=== PATIENT | female | born 1995 | race Caucasian/White ===

== ENCOUNTER → 2021-04-14 10:18 | Outpatient (CLI) | payer OTHER, SELFPAY ==
[2021-04-14 11:15] LABS: Add Manual Diff / Slide Review NO; Basophils Absolute Auto 100 /uL (0-100); Basophils Percent Auto 0.8 % (0-2); Eosinophils Absolute Auto 100 /uL (0-450); Eosinophils Percent Auto 0.9 % (2-4); Hematocrit 37.3 % (36-46); Hemoglobin 12.3 g/dL (12.0-16.0); Lymphocytes Absolute Auto 2200 /uL (1100-4500); Lymphocytes Percent Auto 28.6 % (25-40); Mean Corpuscular Hemoglobin 29.8 PG (26-34); Mean Corpuscular Volume 90.2 fL (80-100); Monocytes Absolute Auto 500 /uL (0-900); Monocytes Percent Auto 6.8 % (3-14); Neutrophils Absolute Auto 4900 /uL (1500-7000); Neutrophils Percent Auto 62.9 % (50-75); Platelet Count 304 X10^3/uL (150-400); Red Blood Cell Count 4.14 X10^6/uL (4.0-5.2); Red Cell Distribution Width 12.6 % (11.6-14.8); White Blood Cell Count 7.8 X10^3/uL (4.5-11.0)
[2021-04-14 11:53] LABS: Appearance Urine UA CLEAR; Bilirubin Urine UA NEGATIVE (NEGATIVE); Color Urine UA YELLOW; Glucose Urine UA NEGATIVE (Negative); Ketones Urine UA NEGATIVE (NEGATIVE); Leukocyte Esterase Urine UA NEGATIVE (NEGATIVE); Nitrite Urine UA NEGATIVE (Negative); Occult Blood Urine UA NEGATIVE (Negative); Protein Urine UA NEGATIVE (Negative); Urobilinogen Urine UA 0.2 E.U./dL (0.2)
[2021-04-14 11:54] LABS: pH Urine UA 7.5 (4.5-8.0)
[2021-04-14 15:34] LABS: Hepatitis B Surface Antigen NEGATIVE s/c (NEGATIVE); Rubella Antibody IgG 60.4 IU/mL (>15)
[2021-04-14 15:38] LABS: HIV 1 & 2 Ab/Ag 4th Gen Combo NEGATIVE (NEGATIVE); Hep C Virus Ab w/Reflex Quant NEGATIVE s/c (NEGATIVE)
[2021-04-15 07:10] LABS: RPR Screen Non Reactive (Non Reactive)
[2021-04-15 13:44] LABS: Varicella IgG Antibody >4000 index (Immune >165)
== END ==
PROVIDERS: Referring Provider Family Medicine; Visit Provider Family Medicine
DX: Z34.01 Encounter for supervision of normal first pregnancy, first trimester (principal)
CPT/HCPCS: 36415; 80055; 81003; 86787; 86803; 86850; 86900; 86901; 87086; 87389

== ENCOUNTER → 2021-04-29 12:36 | Outpatient (CLI) | payer OTHER, SELFPAY | PROVIDERS: Referring Provider Family Medicine; Visit Provider Family Medicine | DX: Z34.81 Encounter for supervision of other normal pregnancy, first trimester (principal) | CPT/HCPCS: 36415 ==

== ENCOUNTER → 2021-07-16 10:08 | Outpatient (CLI) | payer OTHER, SELFPAY ==
--- NOTE | 2021-07-16 10:10 | DI.US.S_ITS ---
PROCEDURE: US OB >= 14 WEEKS FETUS INDICATIONS: ANATOMY OUTSIDE/PRIOR DATING DATA: First dating scan (date and location): July 16, 2021 . Estimated date of delivery (SHIMA) from first dating scan: November 25, 2021 . TECHNIQUE: Real-time scanning was performed of the fetus, with image documentation and biometric measurements. Endovaginal scanning: Not performed COMPARISON: None. FINDINGS: General: A single living intrauterine gestation is present. Presentation: Vertex. Placenta: Placental position is posterior , without previa. Amniotic fluid index: 11.5 cm, normal range is 5-24 cm. heart rate: 144 beats per minute. Maternal cervical canal: 3.4 cm long. Normal lower limit is 2.5 cm. Echogenic debris noted diffusely throughout the maternal urinary bladder. biometrics: Biparietal diameter: 5.4 cm, correlating with 22 weeks and 2 days Head circumference: 19.0 cm, correlating with 21 weeks and 2 days Abdominal circumference: 14.7 cm, correlating with 20 weeks and 0 days Femur length: 3.4 cm, correlating with 20 weeks and 5 days Estimated gestational age from initial scan: not applicable. Composite gestational age from present scan: 21 weeks and 1 day Estimated weight and percentile: 356 g. Percentile not able to be calculated. Measurement variability for biometric dating: +/- 7 days from 14 weeks to 15 weeks 6 days gestation, +/- 10 days from 16 weeks to 21 weeks 6 days gestation, +/- 2 weeks from 22 weeks to 27 weeks 6 days gestation, +/- 3 weeks for 28 weeks gestation or later. weight reference: 4500 g or EFW >90/95% is considered macrosomia or large for gestational age. EFW <10% is small for gestational age. EFW 5% or less is considered intra-uterine growth restriction. Anatomic survey: Neuro: Ventricles are non-dilated at less than 10 mm. Cisterna magna is normal at 3-11 mm. Cerebellum is normal in size and morphology. Nuchal skin fold: Normal at less than 6 mm between 14-21 weeks gestational age. Face: Nose and lips, facial profile are normal. Spine: No evidence for spina bifida. Heart: 4-chambered heart is present, with normal ventricular outflow tracts. Diaphragm: Diaphragm is intact. Stomach: Left-sided stomach is present. Kidneys: No hydronephrosis. Normal is less than 5 mm in 2nd trimester, less than 7 mm in 3rd trimester. Cord: 3-vessel cord has orthotopic insertion. Bladder: Normal in size. Extremities: All 4 extremities identified. IMPRESSION: 1. Single living intrauterine gestation with estimated sonographic gestational age of approximately 21 weeks and 1 day with estimated dated delivery of approximately November 25, 2021. Estimated weight of approximately 356 g. weight percentile not able to be calculated. 2. Normal second-trimester anatomic screening survey. 3. Incidental note of diffuse echogenic debris within the maternal urinary bladder. Recommend clinical correlation. Dictated by: Kraig Manzanares M.D. on 07/16/2021 at 15:05 Approved by: Kraig Manzanares M.D. on 07/16/2021 at 15:10
== END ==
PROVIDERS: PCP Family Medicine; Referring Provider Family Medicine; Visit Provider Family Medicine
DX: Z34.90 Encounter for supervision of normal pregnancy, unspecified, unspecified trimester (principal); Z3A.20 20 weeks gestation of pregnancy
CPT/HCPCS: 76811

== ENCOUNTER → 2021-09-10 10:02 | Outpatient (CLI) | payer OTHER, SELFPAY ==
[2021-09-10 11:46] LABS: Add Manual Diff / Slide Review NO; Basophils Absolute Auto 0 /uL (0-100); Basophils Percent Auto 0.3 % (0-2); Eosinophils Absolute Auto 100 /uL (0-450); Eosinophils Percent Auto 0.6 % (2-4); Hematocrit 34.4 % (36-46); Hemoglobin 11.7 g/dL (12.0-16.0); Lymphocytes Absolute Auto 1700 /uL (1100-4500); Lymphocytes Percent Auto 17.7 % (25-40); Mean Corpuscular HGB Conc 34.1 % (30-36); Mean Corpuscular Hemoglobin 30.4 PG (26-34); Monocytes Absolute Auto 600 /uL (0-900); Monocytes Percent Auto 5.9 % (3-14); Neutrophils Absolute Auto 7300 /uL (1500-7000); Neutrophils Percent Auto 75.5 % (50-75); Platelet Count 250 X10^3/uL (150-400); Red Blood Cell Count 3.86 X10^6/uL (4.0-5.2); Red Cell Distribution Width 12.9 % (11.6-14.8); White Blood Cell Count 9.6 X10^3/uL (4.5-11.0)
[2021-09-10 13:03] LABS: GTT (PREG) 1 Hour PP 50gm Dose 118 mg/dL (76-139)
== END ==
PROVIDERS: PCP Family Medicine; Referring Provider Family Medicine; Visit Provider Family Medicine
DX: Z3A.24 24 weeks gestation of pregnancy (principal)
CPT/HCPCS: 36415; 82950; 85025

== ENCOUNTER → 2021-10-22 10:04 | Outpatient (CLI) | payer OTHER, SELFPAY ==
[2021-10-22 11:04] LABS: COVID19 -Nasal RAPID POSITIVE (Negative)
== END ==
PROVIDERS: PCP Family Medicine; Visit Provider Family Medicine
DX: J02.9 Acute pharyngitis, unspecified (principal); M79.10 Myalgia, unspecified site
CPT/HCPCS: 87635

== ENCOUNTER → 2021-11-05 10:13 | Outpatient (CLI) | payer OTHER, SELFPAY ==
[2021-11-07 10:34] LABS: Strep Grp B PCR NEG for Grp B Strep
== END ==
PROVIDERS: PCP Family Medicine; Visit Provider Family Medicine
DX: Z34.93 Encounter for supervision of normal pregnancy, unspecified, third trimester (principal); Z3A.35 35 weeks gestation of pregnancy
CPT/HCPCS: 87653

== ENCOUNTER → 2021-11-10 09:59 | Outpatient (CLI) | payer OTHER, SELFPAY ==
--- NOTE | 2021-11-10 10:01 | DI.US.S_ITS ---
PROCEDURE: US OB FOLLOW UP INDICATIONS: LGA OUTSIDE/PRIOR DATING DATA: Last menstrual period (LMP): Unknown. LMP-based estimated date of delivery (SHIMA): Not applicable First dating scan (date and location): 07/16/21. Estimated date of delivery (SHIMA) from first dating scan: 11/25/21. The calculations are made using the ultrasound SHIMA of 11/25/21. TECHNIQUE: Real-time scanning was performed of the fetus, with image documentation and biometric measurements. Endovaginal scanning: Not performed COMPARISON: [facility], , US OB >= 14 WEEKS FETUS, 07/16/2021, 10:59. FINDINGS: General: A single living intrauterine gestation is present. Presentation: Vertex. Placenta: Placental position is posterior to the maternal left , without previa. Amniotic fluid index: 21.5 cm, normal range is 5-24 cm. Single deepest vertical pocket is 8.2 cm. heart rate: 153 beats per minute. Maternal cervical canal: Not measured biometrics: Biparietal diameter: 9.3 cm, 37 weeks, four days Head circumference: 34.7 cm, 40 weeks, two days Abdominal circumference: 33.8 cm, 37 weeks, five days Femur length: 7.2 cm, 36 weeks, four days Clinically estimated gestational age: 37 weeks, six days Composite gestational age from present scan: 38 weeks, 0 days Estimated weight and percentile: 3294 g, 58th percentile IMPRESSION: 1. Single living intrauterine with appropriate growth. 2. Amniotic fluid index 21.5 cm. 3. Estimated weight at the 58th percentile. We strive to produce accurate, complete, and clear reports of imaging services. To assist us in improving patient care, this report was composed using standard report templates and voice recognition software. Therefore, it may contain abnormal punctuation, insertions and/or omissions. Occasional wrong-word or sound-alike substitutions may occur. Though we review the report and make efforts to correct it, we do recommend that the report be read carefully in proper context to recognize any text inaccuracies. Dictated by: Joann Bae M.D. on 11/10/2021 at 14:13 Approved by: Joann Bae M.D. on 11/10/2021 at 14:18
== END ==
PROVIDERS: PCP Family Medicine; Referring Provider Family Medicine; Visit Provider Family Medicine
DX: Z34.93 Encounter for supervision of normal pregnancy, unspecified, third trimester (principal); Z3A.38 38 weeks gestation of pregnancy
CPT/HCPCS: 76816

== ENCOUNTER 2021-11-22 08:47 | Inpatient (IN) | payer OTHER, SELFPAY ==
--- NOTE | 2021-11-22 10:50 | P.HPOB_ITS ---
OB HPI Date/Time Date of admission: 11/22/21 Date Patient Seen: 11/22/21 Time Patient Seen: 10:30 History of Present Condition Chief complaint: LABOR SHIMA Calculator Estimated Delivery Date Method Current WG Current Estimate 11/30/21 Manual 38w 6d Final SHIMA - KASSY Other Estimates 11/23/21 LMP (Certain) 39w 6d 11/30/21 Ultrasound #1 38w 6d Estimated Gestational Age (weeks): 38w6d : 1 Para: 0 Narrative: Pt is a 26yo at 38w6d who presented with regular painful contractions. Pt reports contractions started around 2am and have increased in frequency and intensity since then. No LOF, mild pink spotting. She is feeling her baby move regularly. The pts has been uncomplicated. care: good care, initiated at week # (7) and pounds weight gain (48) Dating criteria OB: based on 1st trimester US only Ultrasounds: normal 1st trimester US and normal mid trimester US Obstetrical complications: none Medical complications OB: none Preadmission Labs Last OB Lab Results: Blood Type A Positive 04/14/21 10:41 04/14/21 Antibody Screen Negative 04/14/21 10:41 04/14/21 Hematocrit 34.4 % (36-46) L 09/10/21 11:25 09/10/21 Hemoglobin 11.7 g/dL (12.0-16.0) L 09/10/21 11:25 09/10/21 Hepatitis B Surface Antigen Negative s/c (NEGATIVE) 04/14/21 10:41 04/14/21 Hepatitis C Antibody Negative s/c (NEGATIVE) 04/14/21 10:41 04/14/21 Rubella Antibody 60.4 IU/mL (>15) 04/14/21 10:41 04/14/21 Varicella-Zoster IgG Antibody >4000 index (Immune >165) 04/14/21 10:41 04/14/21 Glucose 1 Hour 118 mg/dL (76-139) 09/10/21 11:25 09/10/21 Group B Streptococcus (PCR) Neg for grp b strep 11/05/21 10:13 11/05/21 -: Urine: negative Genetic Screens: Cell-free DNA: Normal External Labs -: Urine: negative Evaluation Evaluation Baseline heart rate: 150 Variability: Moderate (11-25) monitor accelerations: Present Monitor Decelerations: Absent Contraction Frequency (minutes): 4 Status: Category l Dilation (cm): 5 Effacement (%): 75 station: -3 [facility] Medical History (Updated 04/04/21 @ 10:22 by Ngozi Tavares RN) Encounter for IUD removal (~12/2020) Surgical History (Updated 04/04/21 @ 10:21 by Ngozi Tavares RN) [place] teeth extracted (~2012) Family History (Updated 04/04/21 @ 10:28 by Ngozi Tavares RN) Mother Insomnia Depression Father Melanoma Grandmother No problems noted. Grandfather Unknown family medical history Grandmother Previous back surgery Arthritis Grandfather No problems noted. Brother Schizophrenia Autism Sister Anxiety Social History marital status: unmarried,living together number of children: 3 household members: significant other (Fiance': engaged to be 04/2021. Has 10 year old son by previous partner. ) and family lives independently: Yes caregiver/support person: No housing: house pets and animals: Yes (1 dog: Safe/aware. ) education level: college ([employer] occupational status: employed ([employer] ) current occupational exposures/hazards: No noy/yazdanism: Christianity special noy needs: No seatbelt use: always firearms in home: No do you feel safe at home: Yes Smoking Status: Never smoker second hand exposure: No alcohol intake: former (Pre-: weekends/social. None since 4 weeks. ) substance use type: does not use during the past year weight has: remained stable well-balanced diet: daily or most days daily servings fruits/ve-4 caffeine: Yes (Has cut down to 1/2 cup/day from 3 cups/day.) Type(s) of exercise: walking (20 min daily. ), running (Used to run 4 miles 3 x a week, but stopped with .) and normal ROM and activity frequency: daily Meds Home Medications and Allergies Home Medications Medication Instructions Recorded Confirmed Type prenat.vits,mary lou,[id number] 1 tab PO DAILY 04/04/21 11/22/21 History acyclovir 400 mg tablet 400 mg PO BID #60 tab 07/31/21 11/22/21 Rx Allergies Allergy/AdvReac Type Severity Reaction Status Date / Time amoxicillin Allergy Severe Hives Verified 04/04/21 10:11 Penicillins Allergy Severe Hives Verified 04/04/21 10:11 OB Exam Narrative Exam Narrative: Gen: NAD, sitting comfortably in bed, appears well CV: RRR, no murmurs Resp: clear to auscultation bilaterally Abd: soft, gravid, nontender Ext: trace edema Assessment and Plan Assessment and Plan Assessment and Plan narrative: 26yo at 38w6d here in active labor. GBS negative, Rh positive. No complications with . - Expectant management, anticipate - FHT reassuring - GBS negative, no prophylaxis - Epidural for pain control when desired
[2021-11-22 11:18] VITALS: BP 132/80
[2021-11-22 12:11] LABS: COVID19 -Nasal RAPID Negative (Negative)
[2021-11-22 15:24] LABS: Add Manual Diff / Slide Review NO; Basophils Absolute Auto 100 /uL (0-100); Basophils Percent Auto 0.7 % (0-2); Eosinophils Absolute Auto 0 /uL (0-450); Eosinophils Percent Auto 0.1 % (2-4); Hematocrit 39.2 % (36-46); Hemoglobin 13.2 g/dL (12.0-16.0); Lymphocytes Absolute Auto 1800 /uL (1100-4500); Mean Corpuscular HGB Conc 33.7 % (30-36); Mean Corpuscular Hemoglobin 29.9 PG (26-34); Mean Corpuscular Volume 88.7 fL (80-100); Monocytes Absolute Auto 600 /uL (0-900); Monocytes Percent Auto 4.2 % (3-14); Neutrophils Absolute Auto 12500 /uL (1500-7000); Platelet Count 257 X10^3/uL (150-400); Red Blood Cell Count 4.43 X10^6/uL (4.0-5.2); Red Cell Distribution Width 13.3 % (11.6-14.8); White Blood Cell Count 15.1 X10^3/uL (4.5-11.0)
--- NOTE | 2021-11-22 16:19 | PM.OBPNLAB ---
Date/Time Date Patient Seen: 11/22/21 Time Patient Seen: 16:19 Pain Control Pain control: epidural Pelvic Exam Dilation (cm): 6.5 Effacement (%): 90 station: 0 Comments: After informed consent, AROM performed with production of clear fluid Contractions Contraction frequency (min): 3 Contraction pattern: Regular Status status: Category l Heart Rate Baseline: 140 Monitor Accelerations: Present Monitor Decelerations: Absent Monitor Variability: Moderate Assessment and Plan Comments: 26yo at 38w6d here in active labor.? GBS negative, Rh positive.? No complications with . AROM performed with production of clear fluid due to limited cervical change. - Expectant management, anticipate - FHT reassuring - GBS negative, no prophylaxis - Epidural in place for pain control
--- NOTE | 2021-11-22 22:16 | PM.OBPRVD ---
Labor & Delivery Delivery date: 11/22/21 Intrapartal Events: None Cervical ripening method: none Induction method: none Delivery augmentation: rupture of membranes Delivery monitor: external FHT Route of delivery: Episiotomy description: None L&D Laceration Description: Periurethral - 1st Degree and Vaginal - 1st Degree Estimated blood loss (mL): 400 Anesthesia Type: Epidural Complications: None Narrative: PROCEDURE: at 38w6d presented in active labor and was admitted to Labor and Delivery. The patient progressed through the 1st stage over 17 hours. Pain was controlled with an epidural. AROM was performed with production of clear fluid. The patient progressed through the 2nd stage over 1 hours and delivered a viable male infant with APGARs 9/9 at 21:45 via without complications. The pts tracing remained Category I throughout. The cord was clamped and cut after it stopped pulsating. The perineum and vagina were inspected with vaginal laceration repaired with 2-O Chromic, and right periurethral laceration repaired with 3-O Chromic. PREPROCEDURE DIAGNOSIS: Intrauterine at 38w6d GBS negative RH positive POSTPROCEDURE DIAGNOSIS: Intrauterine at 38w6d, delivered Same as preprocedure Baby 1: gender: Male Presentation: vertex Position: Left Occiput Anterior Placenta delivery description: Spontaneous Cord Vessel Description: 3 Vessels and Around Body x2 score (1 min): 9 score (5 min): 9 weight: 8 lb 1.597 oz Plan for aftercare: Routine care
[2021-11-22] MEDS: IBUPROFEN 600 MG TABLET PO (22:51)
[2021-11-22] MEDS: ACETAMINOPHEN 325 MG TABLET 650 MG PO (22:51)
[2021-11-23] MEDS: ACETAMINOPHEN 325 MG TABLET 650 MG PO ×2 (04:49→10:31)
[2021-11-23] MEDS: IBUPROFEN 600 MG TABLET PO ×2 (04:49→10:31)
[2021-11-23 07:04] LABS: Add Manual Diff / Slide Review NO; Basophils Absolute Auto 100 /uL (0-100); Basophils Percent Auto 0.4 % (0-2); Eosinophils Absolute Auto 100 /uL (0-450); Eosinophils Percent Auto 0.5 % (2-4); Hemoglobin 11.4 g/dL (12.0-16.0); Lymphocytes Absolute Auto 2500 /uL (1100-4500); Lymphocytes Percent Auto 15.3 % (25-40); Mean Corpuscular HGB Conc 33.6 % (30-36); Mean Corpuscular Hemoglobin 29.8 PG (26-34); Mean Corpuscular Volume 88.7 fL (80-100); Monocytes Absolute Auto 1000 /uL (0-900); Monocytes Percent Auto 6.1 % (3-14); Neutrophils Absolute Auto 12700 /uL (1500-7000); Neutrophils Percent Auto 77.7 % (50-75); Platelet Count 204 X10^3/uL (150-400); Red Blood Cell Count 3.84 X10^6/uL (4.0-5.2); White Blood Cell Count 16.4 X10^3/uL (4.5-11.0)
[2021-11-23] MEDS: DERMOPLAST SPRAY 20% 60 ML 1 SPRAY TOP (10:30)
[2021-11-23] MEDS: LANOLIN OINT 7 GM 1 APPLIC TOP (10:30)
[2021-11-23] MEDS: PRENATAL VIT,CALC/IRON/FOLIC 1 TABLET 1 TAB PO (10:31)
[2021-11-23] MEDS: DOCUSATE 100 MG CAPSULE PO (10:31)
--- NOTE | 2021-11-23 14:47 | P.DS_ITS ---
Discharge Providers Provider Date of admission: 11/22/21 08:47 Discharge Date: 11/23/21 Primary care physician: Liss Oscar MD Consults: 11/23/21 22:17 Consult to External Relations Director Routine Comment: Discharge provider: Liss Oscar MD Summary Hospital Course Date Patient Seen: 11/23/21 Time Patient Seen: 11:00 Diagnoses: 38w6d gestation GBS negative Rh positive Hospital Course: The pt presented in active labor. She receive d an epidural for pain control. AROM was performed with clear fluid present. She progressed to complete and had a of a viable baby boy on 11/22/21 without complications. Vaginal and right periurethral lacerations were then repaired. , there were no complications. At the time of discharge she was voiding, ambulating, and passing flatus without difficulty. Her lochia was decreasing appropriately. Her pain was well controlled. She was with good latch. She will f/u in clinic for 6 week check. She desires Mirena IUD for contraception. Peripartum Data Infant Delivery Method: Natural Vaginal Laceration Description: Periurethral - 1st Degree and Vaginal - 1st Degree Episiotomy description: None Procedures: complications: none Cort[place] 1: Gender: Male Disposition of : home Discharge Diagnosis (1) Spontaneous vaginal delivery: Status: Acute Status at Discharge Cognitive/behavioral status at discharge: oriented Functional status at discharge: independent ambulation Overall status at discharge: patient is progressing back to baseline Time Spent with Patient Time attestation: Total time spent providing and/or coordinating discharge services: Objective Labs Result Diagrams: 11/23/21 06:55 Labs: Laboratory Results - last 24 hr 11/22/21 11/22/21 11/23/21 15:10 15:10 06:55 WBC 15.1 H 16.4 H RBC 4.43 3.84 L Hgb 13.2 11.4 L Hct 39.2 34.0 L MCV 88.7 88.7 MCH 29.9 29.8 MCHC 33.7 33.6 RDW 13.3 13.0 Plt Count 257 204 Neut % (Auto) 83.0 H 77.7 H Lymph % (Auto) 12.0 L 15.3 L Sevier % (Auto) 4.2 6.1 Eos % (Auto) 0.1 L 0.5 L Baso % (Auto) 0.7 0.4 Neut # (Auto) 67934 H 28272 H Lymph # (Auto) 1800 2500 [place]vier # (Auto) 600 1000 H Eos # (Auto) 0 100 Baso # (Auto) 100 100 Blood Type A Positive Antibody Screen Negative Exam Narrative Exam Narrative: Gen: NAD, sitting comfortably in bed, appears well CV: RRR, no murmurs Resp: clear to auscultation bilaterally Abd: soft, appropriately tender, fundus firm and below the umbilicus, nondiste nded Ext: no edema Discharge Plan Discharge orders & Medications Discharge Orders: Discharge (Order); Ordered 11/23/21 Ordered By: Liss Oscar Prescriptions: New acetaminophen 325 mg Tablet 650 mg PO Q6HR PRN (Reason: Pain, Mild (1-3)) Qty: 30 0RF docusate sodium 100 mg Capsule 100 mg PO DAILY Qty: 30 0RF ibuprofen 600 mg Tablet 600 mg PO Q6HR PRN (Reason: Pain, Mild (1-3)) Qty: 30 0RF Continued acyclovir 400 mg tablet 400 mg PO BID Qty: 60 0RF prenat.vits,mary lou,[id number] Tablet 1 tab PO DAILY 0RF Follow up/Referrals: Liss Oscar MD [Primary Care Provider] - 6 Weeks Diet/Activity/Treatments Diet: Diet as Tolerated and Regular Skin/Wound/Dressing Care Report to your healthcare provider any signs of infection, such as:: chills, fever, increased pain and unusual drainage Visit Report/Discharge Packet Instructions: DI for Labor and Delivery, Vaginal Visit Report Forms: Patient Portal/API, Stroke Signs & Symptoms Discharge Data Primary Care Provider: Liss Oscar
[2021-11-23 18:27] VITALS: BP 132/80; PULSE 80; RESP 18; TEMP 36.3
== END 2021-11-23 19:00 | disposition home or self-care (01) | DRG 807 ==
PROVIDERS: Admitting Provider Family Medicine; PCP Family Medicine; Referring Provider Family Medicine; Visit Provider Family Medicine
DX: O70.0 First degree perineal laceration during delivery (principal); Z37.0 Single live birth; O71.82 Other specified trauma to perineum and vulva; Z3A.38 38 weeks gestation of pregnancy; Z20.822 Contact with and (suspected) exposure to COVID-19
CPT/HCPCS: 01967; 36415; 59050; 59400; 85025; 86850; 86900; 86901; 87635; C9803; G0379

== ENCOUNTER → 2022-12-29 10:09 | Outpatient (CLI) | payer OTHER, SELFPAY ==
[2022-12-29 11:26] LABS: Influenza A - CEPHEID Flu A NEGATIVE (NEGATIVE); Influenza B - CEPHEID Flu B NEGATIVE (NEGATIVE); Respiratory Syncytial Virus Negative (Negative)
[2022-12-29 11:27] LABS: COVID-19 CEPHEID 4-PLEX PCR Negative (Negative)
== END ==
PROVIDERS: Urology; PCP Family Medicine; Visit Provider Physician Assistant
DX: J02.9 Acute pharyngitis, unspecified (principal)
CPT/HCPCS: 0241U; 87070

== ENCOUNTER → 2024-02-10 14:53 | Outpatient (CLI) | payer OTHER, SELFPAY ==
[2024-02-11 15:32] LABS: Add Manual Diff / Slide Review NO; Basophils Absolute Auto 0 /uL (0-100); Basophils Percent Auto 0.4 % (0-2); Eosinophils Absolute Auto 100 /uL (0-450); Eosinophils Percent Auto 0.9 % (2-4); Hemoglobin 13.1 g/dL (12.0-16.0); Lymphocytes Absolute Auto 2900 /uL (1100-4500); Lymphocytes Percent Auto 26.6 % (25-40); Mean Corpuscular HGB Conc 33.7 % (30-36); Mean Corpuscular Hemoglobin 30.1 PG (26-34); Mean Corpuscular Volume 89.3 fL (80-100); Monocytes Absolute Auto 600 /uL (0-900); Monocytes Percent Auto 5.3 % (3-14); Neutrophils Absolute Auto 7400 /uL (1500-7000); Neutrophils Percent Auto 66.8 % (50-75); Platelet Count 337 X10^3/uL (150-400); Red Blood Cell Count 4.37 X10^6/uL (4.0-5.2); Red Cell Distribution Width 12.5 % (11.6-14.8)
[2024-02-11 16:14] LABS: Natera Collection Specimen Collected
[2024-02-12 13:51] LABS: Varicella IgG Antibody >4000 index (Immune >165)
[2024-02-14 16:36] LABS: HIV 1 & 2 Ab/Ag 4th Gen Combo NEGATIVE (NEGATIVE); Hep C Virus Ab w/Reflex Quant NEGATIVE s/c (NEGATIVE); Hepatitis B Surface Antigen NEGATIVE s/c (NEGATIVE)
[2024-02-15 05:13] LABS: RPR Screen Non Reactive (Non Reactive)
== END ==
LOC: LAB 14:55
PROVIDERS: PCP Family Medicine; Referring Provider Family Medicine; Visit Provider Family Medicine
DX: Z34.01 Encounter for supervision of normal first pregnancy, first trimester (principal); Z34.80 Encounter for supervision of other normal pregnancy, unspecified trimester
CPT/HCPCS: 36415; 80055; 86787; 86803; 86850; 86900; 86901; 87389

== ENCOUNTER → 2024-02-11 14:47 | Outpatient (CLI) | payer OTHER, SELFPAY ==
[2024-02-11 15:26] LABS: Appearance Urine UA CLEAR; Bilirubin Urine UA NEGATIVE (NEGATIVE); Color Urine UA YELLOW; Glucose Urine UA NEGATIVE (Negative); Ketones Urine UA NEGATIVE (NEGATIVE); Leukocyte Esterase Urine UA NEGATIVE (NEGATIVE); Nitrite Urine UA NEGATIVE (Negative); Occult Blood Urine UA NEGATIVE (Negative); Protein Urine UA NEGATIVE (Negative); Specific Gravity Urine UA 1.025 (1.000-1.035); Urobilinogen Urine UA 0.2 E.U./dL (0.2)
[2024-02-11 15:35] LABS: pH Urine UA 5.5 (4.5-8.0)
[2024-02-11 18:17] LABS: Urine N gonorrhoeae NOT DETECTED
[2024-02-11 18:28] LABS: Urine Chlamydia NOT DETECTED
== END ==
PROVIDERS: PCP Family Medicine; Referring Provider Family Medicine; Visit Provider Family Medicine
DX: Z34.01 Encounter for supervision of normal first pregnancy, first trimester (principal); Z34.80 Encounter for supervision of other normal pregnancy, unspecified trimester
CPT/HCPCS: 81003; 87086; 87491; 87591

== ENCOUNTER → 2024-04-12 08:42 | Outpatient (CLI) | payer OTHER, SELFPAY ==
--- NOTE | 2024-04-12 08:42 | DI.US.S_ITS ---
PROCEDURE: US OB >= 14 WEEKS FETUS INDICATIONS: anatomy OUTSIDE/PRIOR DATING DATA: Last menstrual period (LMP): 12/02/2023 LMP-based estimated date of delivery (SHIMA): 09/07/2024 First dating scan (date and location): 04/12/2024 (current exam) The calculations are made using the clinical SHIMA of 09/07/2024 TECHNIQUE: Real-time scanning was performed of the fetus, with image documentation and biometric measurements. Endovaginal scanning: Not performed. COMPARISON: None. FINDINGS: General: A single living intrauterine gestation is present. Presentation: Vertex Placenta: Placental position is posterior, without previa. Amniotic fluid index: 13.6 cm, normal range is 5-24 cm. Single deepest vertical pocket is 3.9 cm. heart rate: 154 beats per minute. Maternal cervical canal: 2.7 cm long. No funneling is seen. Normal lower limit is 2.5 cm. biometrics: Biparietal diameter: 4.5 cm, 19 weeks 3 days Head circumference: 16.8 cm, 19 weeks 3 days Abdominal circumference: 13.6 cm, 19 weeks 0 days Femur length: 3.0 cm, 19 weeks 1 day Clinically estimated gestational age: 18 weeks 6 days Composite gestational age from present scan: 19 weeks 2 days Estimated weight and percentile: 275 g, 62nd percentile Anatomic survey: Neuro: Ventricles are non-dilated at less than 10 mm. Cisterna magna is normal at 3-11 mm. Cerebellum is normal in size and morphology. Nuchal skin fold: Not well visualized. Face: Nose and lips are normal. Facial profile is not well visualized. Spine: No evidence for spina bifida. Heart: 4-chambered heart and ventricular outflow tracts are not well visualized. Diaphragm: Diaphragm is intact. Stomach: Left-sided stomach is present. Kidneys: No hydronephrosis. Normal is less than 5 mm in 2nd trimester, less than 7 mm in 3rd trimester. Cord: 3-vessel cord has orthotopic insertion. Bladder: Normal in size. Extremities: All 4 extremities identified. IMPRESSION: 1. Single live intrauterine . size is concordant with clinical dates. 2. heart views and facial profile are not well evaluated due to positioning. Recommend follow-up exam. 3. anatomic survey is otherwise within normal limits. Approved by: Chico Cortez M.D. on 04/12/2024 at 14:19
== END ==
PROVIDERS: PCP Family Medicine; Referring Provider Family Medicine; Visit Provider Family Medicine
DX: Z34.82 Encounter for supervision of other normal pregnancy, second trimester (principal); Z3A.19 19 weeks gestation of pregnancy
CPT/HCPCS: 76811

== ENCOUNTER → 2024-04-26 09:19 | Outpatient (CLI) | payer OTHER, SELFPAY ==
--- NOTE | 2024-04-26 09:20 | DI.US.S_ITS ---
PROCEDURE: US OB FOLLOW UP INDICATIONS: additional views needed OUTSIDE/PRIOR DATING DATA: Last menstrual period (LMP): 12/02/23. LMP-based estimated date of delivery (SHIMA): 09/07/24. First dating scan (date and location): Not available. Estimated date of delivery (SHIMA) from first dating scan: Not applicable. The calculations are made using the working SHIMA of 09/04/20. TECHNIQUE: Real-time scanning was performed of the fetus, with image documentation. Endovaginal scanning: Not performed COMPARISON: [facility], OB >= 14 WEEKS FETUS, 04/12/2024, 9:05. [facility], OB FOLLOW UP, 11/10/2021, 10:35. FINDINGS: A single living intrauterine gestation is present. Presentation: Vertex. Placenta: Placental position is posterior, without previa. Amniotic fluid index: 14.0 cm, normal range is 5-24 cm. Single deepest vertical pocket is 4.2 cm. heart rate: 150 beats per minute. Maternal cervical canal: Closed and 3.3 cm long. Normal lower limit is 2.5 cm. Clinically estimated gestational age: 20 weeks six days Four chambered heart is present. facial profile appears normal. Cardiac outflow tracts were not seen due to position. IMPRESSION: Single living intrauterine in vertex presentation. Improved visualization of normal facial features and four chambered heart. Suboptimal visualization of cardiac outflow tracts due to position. Short interval follow-up recommended. Dictated by: Joann Bae M.D. on 04/26/2024 at 15:28 Approved by: Joann Bae M.D. on 04/26/2024 at 15:31
== END ==
PROVIDERS: PCP Family Medicine; Referring Provider Family Medicine; Visit Provider Family Medicine
DX: Z34.82 Encounter for supervision of other normal pregnancy, second trimester (principal); Z3A.20 20 weeks gestation of pregnancy
CPT/HCPCS: 76816

== ENCOUNTER → 2024-05-09 14:40 | Outpatient (CLI) | payer OTHER, SELFPAY ==
--- NOTE | 2024-05-09 14:41 | DI.US.S_ITS ---
PROCEDURE: US OB FOLLOW UP INDICATIONS: RVOT OUTSIDE/PRIOR DATING DATA: Last menstrual period (LMP): 12/02/2023. LMP-based estimated date of delivery (SHIMA): 11/07/2023. First dating scan (date and location): 09/04/2024. Estimated date of delivery (SHIMA) from first dating scan: Not applicable. The calculations are made using the working SHIMA of 09/04/2024. TECHNIQUE: Real-time scanning was performed of the fetus, with image documentation. Endovaginal scanning: Not performed COMPARISON: [facility], , OB FOLLOW UP, 04/26/2024, 9:48. FINDINGS: A single living intrauterine gestation is present. Presentation: Breech. Placenta: Placental position is posterior, without previa. Amniotic fluid index: 14.3 cm, normal range is 5-24 cm. Single deepest vertical pocket is 4.7 cm. heart rate: 160 beats per minute. Maternal cervical canal: 3.8 cm long. Normal lower limit is 2.5 cm. Clinically estimated gestational age: 23 weeks 1 day Other: RV OT well seen and within normal limits. IMPRESSION: 1. Living 2nd trimester intrauterine with no sonographic evidence of complications. 2. RV OT within normal limits. This completes a normal 2nd trimester anatomy study. Dictated by: Aguila Alaniz M.D. on 05/09/2024 at 18:48 Approved by: Aguila Alaniz M.D. on 05/09/2024 at 18:51
== END ==
PROVIDERS: PCP Family Medicine; Referring Provider Family Medicine; Visit Provider Family Medicine
DX: Z34.82 Encounter for supervision of other normal pregnancy, second trimester (principal); Z3A.23 23 weeks gestation of pregnancy
CPT/HCPCS: 76816

== ENCOUNTER → 2024-06-07 10:38 | Outpatient (CLI) | payer OTHER, SELFPAY ==
[2024-06-07 13:04] LABS: Hematocrit 32.5 % (36-46)
[2024-06-07 13:11] LABS: GTT (PREG) 1 Hour PP 50gm Dose 127 mg/dL (76-139)
== END ==
PROVIDERS: PCP Family Medicine; Referring Provider Family Medicine; Visit Provider Family Medicine
DX: Z34.92 Encounter for supervision of normal pregnancy, unspecified, second trimester (principal); Z3A.26 26 weeks gestation of pregnancy
CPT/HCPCS: 82950; 85014; 85018

== ENCOUNTER → 2024-08-08 08:16 | Outpatient (CLI) | payer OTHER, SELFPAY ==
[2024-08-09 11:48] LABS: Strep Grp B PCR NEG for Grp B Strep
== END ==
PROVIDERS: PCP Family Medicine; Visit Provider Family Medicine
DX: Z34.80 Encounter for supervision of other normal pregnancy, unspecified trimester (principal)
CPT/HCPCS: 87653

== ENCOUNTER 2024-08-25 22:34 | Inpatient (IN) | payer OTHER, SELFPAY ==
[2024-08-26] VITALS (9 sets, daily range): BP systolic 118–134; BP diastolic 76–88; PULSE 96–140; RESP 11–21; TEMP 2.6–36.6; O2SAT 95–99
[2024-08-26 02:01] LABS: Add Manual Diff / Slide Review NO; Basophils Absolute Auto 0 /uL (0-100); Basophils Percent Auto 0.2 % (0-2); Eosinophils Absolute Auto 100 /uL (0-450); Eosinophils Percent Auto 0.4 % (2-4); Hematocrit 38.2 % (36-46); Lymphocytes Absolute Auto 2500 /uL (1100-4500); Lymphocytes Percent Auto 14.1 % (25-40); Mean Corpuscular Hemoglobin 30.1 PG (26-34); Mean Corpuscular Volume 88.5 fL (80-100); Monocytes Absolute Auto 800 /uL (0-900); Monocytes Percent Auto 4.6 % (3-14); Neutrophils Absolute Auto 14000 /uL (1500-7000); Neutrophils Percent Auto 80.7 % (50-75); Platelet Count 250 X10^3/uL (150-400); Red Blood Cell Count 4.32 X10^6/uL (4.0-5.2); Red Cell Distribution Width 13.7 % (11.6-14.8); White Blood Cell Count 17.4 X10^3/uL (4.5-11.0)
[2024-08-26] MEDS: OXYTOCIN PREMIX 30 UNIT/500 ML PLAST..BAG 200 UNIT IV ×2 (03:09→09:05)
--- NOTE | 2024-08-26 03:24 | P.HPOB_ITS ---
OB HPI Date/Time Date of admission: 08/26/24 Date Patient Seen: 08/26/24 Time Patient Seen: 03:25 History of Present Condition Chief complaint: LABOR : 2 Para: 1 Estimated Date of Delivery: 09/07/24 Estimated Gestational Age (weeks): 38 Narrative: Joy Boss is a 29 year old female admitted in active labor History of Present care: good care, initiated at week # (8), number of visits (11) and pounds weight gain (36) Dating criteria: LMP confirmed by 1st trimester US Ultrasounds: normal mid trimester US Obstetrical complications: none Medical complications: none Preadmission Labs Blood type: A (+) positive -: Antibody screen: negative, GBS status: negative, HBsAG: negative, HIV: negative and RPR/VDLR: negative -: Chlamydia screen: not detected -: Rubella: immune and Varicella: immune HCAB: negative Cell-free DNA: Low risk male 1 hr GTT: 127 Prior (ies) History: 11/12/2021 vaginal delivery male at 38 weeks 6 days weighing 8 lb 1 Evaluation Evaluation Baseline heart rate: 130 Variability: Moderate (11-25) monitor accelerations: Present Monitor Decelerations: Absent Contraction Frequency (minutes): 3 Uterine Contraction Intensity: Moderate Category of Tracing: Reactive Status: Category l Dilation (cm): 4 Effacement (%): 80 station: -3 PFSH Medical History Encounter for IUD removal (~12/2020) depression associated with first Spontaneous vaginal delivery Surgical History [place] teeth extracted (~2012) Family History (Updated 01/05/24 @ 13:16 by Emily Clay RN) Mother Insomnia Depression Father Melanoma Grandmother No problems noted. Grandfather Unknown family medical history Grandmother Previous back surgery Arthritis Degenerative joint disease Grandfather Prostate cancer Brother Schizophrenia Autism Sister Anxiety Brother Depression with suicidal ideation Social History marital status: number of children: 4 (includes one stepchild and two children belonging to roommate) household members: significant other, children and friend(s) lives independently: Yes caregiver/support person: Yes housing: house pets and animals: Yes (1 dog) education level: college occupational status: employed current occupational exposures/hazards: No noy/episcopal: Zoroastrian special noy needs: No travel history: over 6 months ago seatbelt use: always water heater temp set < 120 deg: Yes working smoke detector in home: Yes fire extinguisher in home: Yes carbon monox detector in home: Yes firearms in home: No do you feel safe at home: Yes Smoking Status: Never smoker second hand exposure: No (roommate smokes, but only outdoors) alcohol intake: former (~1 glass wine/night, up to 3/night on weekends when not ) substance use type: does not use during the past year weight has: remained stable well-balanced diet: daily or most days daily servings fruits/ve-4 caffeine: Yes (~2 cups drip coffee in AM) Type(s) of exercise: walking, running and normal ROM and activity frequency: 3-4 times per week Meds Home Medications and Allergies Home Medications Medication Instructions Recorded Confirmed Type prenat.vits,mary lou,sky-ehvk-okwkv 1 tab PO DAILY 04/04/21 08/23/24 History 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 No vaginal bleeding. No headaches scotomata or epigastric pain. OB Exam Vital signs Blood Pressure: 124/78 Pulse Rate: 96 Temperature: 36.6 F Narrative Exam Narrative: HEENT exam within normal limits. Lungs are clear to auscultation percussion. Heart is regular rate and rhythm no S3-S4 murmurs. Abdomen is gravid. Fetus is vertex. Extremities without edema and nontender. Objective Labs 08/26/24 01:20 Labs: Laboratory Results - last 24 hr 08/26/24 01:20 WBC 17.4 H RBC 4.32 Hgb 13.0 Hct 38.2 MCV 88.5 MCH 30.1 MCHC 34.0 RDW 13.7 Plt Count 250 Neut % (Auto) 80.7 H Lymph % (Auto) 14.1 L [place] % (Auto) 4.6 Eos % (Auto) 0.4 L Baso % (Auto) 0.2 Neut # (Auto) 40117 H Lymph # (Auto) 2500 [place] # (Auto) 800 Eos # (Auto) 100 Baso # (Auto) 0 Blood Type A Positive Antibody Screen Negative Assessment and Plan Assessment and Plan Assessment and Plan narrative: 29-year-old 2 para 1 EDC 09/07/2024 at 38 weeks 2 days admitted in active labor. Anticipate vaginal delivery Time-Based Coding :: [TOTAL MINUTES] spent with patient and on the chart (including review of chart, obtaining history, exam, reviewing outside data, placing orders, documenting exam and treatment plan, and counseling patient) on [DATE].
--- NOTE | 2024-08-26 03:30 | PM.AN.REGBLK ---
Regional Block Pre-procedure Procedure: Continuous Lumbar Epidural for L&D (with dural puncture) Attending OB provider: Margy Jimenez PMH/ROS narrative: 29yo in labor at 38 weeks, requesting epidural; labor progressing quickly so consent expedited. Pt had epidural with first . PSH/Anesthesia history narrative: [place] teeth, labor epidural ASA Class: II Labs: Hct 38.2 % (36-46) 08/26/24 01:20 Plt Count 250 X10^3/uL (150-400) 08/26/24 01:20 Medications: Current Medications Generic Name Dose Route Start Last Admin Trade Name Freq PRN Reason Stop Dose Admin Calcium Carbonate 1,000 mg 08/26/24 01:50 Calcium Carbonate 500 Mg Tab PO Q2HR PRN Dyspepsia Carboprost Tromethamine 250 mcg 08/26/24 01:50 Carboprost 250 Mcg/Ml Ampul IM Q90M PRN Bleeding Diphenhydramine HCl 25 mg 08/26/24 03:28 Diphenhydramine 50 Mg/Ml Vial IV Q10M PRN Pruritis Ephedrine Sulfate 10 mg 08/26/24 03:28 Ephedrine 50 Mg/Ml Vial IV Q5M PRN Blood pressure decrease more than 20% of baseline. Fentanyl 100 mcg 08/26/24 01:50 Fentanyl 100 Mcg/2 Ml Inj IV Q1H PRN Pain, Severe (7-10) Oxytocin/Lactated Ringer's 30 unit in 500 mls @ 200 mls/hr 08/26/24 01:50 Oxytocin Premix IV CONT PRN Bleeding Protocol Tranexamic Acid 1,000 mg/ 100 mls @ 600 mls/hr 08/26/24 01:50 Sodium Chloride IV NOW PRN Bleeding Oxytocin/Lactated Ringer's 30 unit in 500 mls @ 2 mls/hr 08/26/24 02:00 Oxytocin Premix IV TITRATE CARL Protocol 2 MILLIUNIT/MIN Lactated Ringer's 1,000 mls @ 100 mls/hr 08/26/24 02:00 Lactated Ringers IV 08/26/24 11:59 CONT CARL Lidocaine HCl 20 ml 08/26/24 01:50 Lidocaine 1% 20 Ml INJ INTRA-OP PRN Post Delivery Methylergonovine Maleate 0.2 mg 08/26/24 01:50 Methylergonovine 0.2 Mg Tablet PO Q6HR PRN Heavy Bleeding Methylergonovine Maleate 0.2 mg 08/26/24 01:50 Methylergonovine 0.2 Mg/Ml Vial IM NOW PRN Bleeding Mineral Oil 30 ml 08/26/24 01:50 Mineral Oil 30 Ml Udc TOP PRN PRN Version Misoprostol 800 mcg 08/26/24 01:50 Misoprostol 200 Mcg Tablet MS NOW PRN Bleeding Misoprostol 400 mcg 08/26/24 01:50 Misoprostol 200 Mcg Tablet SL NOW PRN Bleeding Nalbuphine HCl 2.5 mg 08/26/24 03:28 Nalbuphine 20 Mg/Ml Ampul IV Q10M PRN Pruritis Naloxone HCl 0.2 mg 08/26/24 01:50 Naloxone 0.4 Mg/Ml Vial IV Q2MIN PRN Opiate Reversal Ondansetron HCl 4 mg 08/26/24 01:50 Ondansetron 4 Mg/2 Ml Inj IV Q4HR PRN Nausea And Vomiting Oxytocin 10 unit 08/26/24 01:50 Oxytocin 10 Unit/Ml Vial IM NOW PRN Bleeding Allergies: Allergies Allergy/AdvReac Type Severity Reaction Status Date / Time amoxicillin Allergy Severe Hives Verified 08/23/24 08:18 Penicillins Allergy Severe Hives Verified 08/23/24 08:18 Procedure Insertion date: 08/26/24 Insertion time: 02:57 Prep/Local: 1% lidocaine (Chloraprep) Interspace: L3-4 Patient position: sitting Needle: 18 gauge Hustead (27g 5 Tameka for dural puncture) Loss of resistance with: saline STACIE at (cm): 5 Catheter placed at SKIN (cm): 14 Catheter in SPACE (cm): 9 Insertion: No CSF, No Blood, No Paresthesia with insertion, No Paresthesia with injection and No Test dose reaction Initial Medications TEST DOSE time: 02:59 TEST DOSE: 1.5% lidocaine with epinephrine 1:200k (mL): 3 BOLUS DOSE time: 03:00 BOLUS DOSE (mL): 2 BOLUS DOSE med: other (Same as test dose) Infusion Subsequent interventions: Pt felt need to push while taping epidural. No infusion started. Baby delivered at 03:04. Assisted with resuscitation until 03:20. Post-procedure Anesthesia date START: 08/26/24 Anesthesia time START: 02:45 Anesthesia date END: 08/26/24 Anesthesia time END: 03:20 Post-procedure Anesthesia Assessment: Yes CV function: HR/BP stable, Yes Resp function: RR/sat/airway adequate, Yes Post-op hydration adequate, Yes Pain control adequate, Yes Nausea & vomiting absent, Yes Temperature > 36 C, Yes Mental status appropriate and No Anesthesia complications
[2024-08-26] MEDS: TRANEXAMIC ACID 1,000 MG in SODIUM CHLORIDE 0.9% 100 ML 600 MG IV (03:51)
--- NOTE | 2024-08-26 04:15 | PM.OBPRVD ---
Labor & Delivery Delivery date: 08/26/24 Intrapartal Events: Precipitous Labor < 3 hours Delivery monitor: external FHT Route of delivery: (precipitous) L&D Laceration Description: Periurethral - 1st Degree and Vaginal - 1st Degree Quantitative Blood Loss: 848 Anesthesia Type: Epidural (Epidural placed but delivery happened prior to set up and administration of medication) Narrative: After SROM, Joy requested an epidural. The epidural was placed but precipitous delivery prevented initiation of medication. This service planner assumed care of patient when the baby was . After a few pushes on Joy's back, baby's head emerged VINNIE with a single lose nuchal cord and the shoulders following quickly after with a large quantity of clear amniotic fluid. The single live baby boy was placed on the maternal abdomen for stimulation and drying. at 1 min was 6. The clamp was double clamped by service planner and cut by FOB for the baby to be brought to the warmer for resuscitation; RT was called and arrived shortly after and pediatric regional sales director provider was requested. Gush of blood noted, and towels were removed and weighed for initial QBL at which point pitocin was started at 333ml/hr. After several minutes of cord traction and uterine massage without delivery of the placenta, this service planner inserted one hand into the vagina to assess placental location. Placenta was found to be in the vagina. With more fundal massage and cord traction, the placenta delivered via Schultze 30 minutes after delivery of the baby. QBL 848mL. Inspection of the perineum revealed 1st degree periurethral and 1st degree laceration at the base of the vagina. Both lacerations were homeostatic and well approximated. Using shared decision making, patient decided against repair. After CPAP and PPV, baby had spontaneous respirations at 9 minutes of life. With apgars of 7 at 5 minutes and 9 at 10 minutes, baby was returned to the maternal abdomen and began shortly after. TXA was ordered and given after fundal massage produced another gush of blood. Mother and baby were stable and skin to skin when I left the room. Toradol ordered for initial pain management dosing. Baby 1: gender: Male Presentation: vertex Position: Right Occiput Anterior Placenta delivery description: Expressed (massage and gentle cord traction) Cord Vessel Description: 3 Vessels, Nuchal Cord, Loose and Clamped/Cut score (1 min): 6 score (5 min): 7 score (10 min): 9 weight: 3912 kg Plan for aftercare: Routine care
[2024-08-26] MEDS: ACETAMINOPHEN 325 MG TABLET 650 MG PO ×3 (04:54→18:10)
[2024-08-26] MEDS: KETOROLAC 30 MG/ML VIAL 15 MG IV (04:55)
[2024-08-26] MEDS: miSOPROStoL 200 MCG TABLET 1000 MCG PR (07:35)
[2024-08-26] MEDS: METHYLERGONOVINE 0.2 MG/ML VIAL IM (07:39)
--- NOTE | 2024-08-26 08:03 | PM.PREOP ---
Pre-operative Note Interval Note History & Physical reviewed/Exam performed by Physician: Yes Changes to H&P: Yes H&P completed within 30 days and has changed as indicated here:: 1300 cc blood loss since delivery
--- NOTE | 2024-08-26 08:04 | P.PNOB_ITS ---
Subjective - OB Subjective Narrative: Patient initially doing well post delivery. She got up to go to the bathroom and had a blood clot. She returned to bed and was given hemorrhage medication. She very soon after had a another large blood clot with continued bleeding. Total estimated blood loss so for about 1400 cc. Patient feeling somewhat lightheaded dizzy. She denies any current pain. Date Patient Seen: 08/26/24 Time Patient Seen: 08:06 Exam Vital Signs (past 8 hours): Blood pressure 124/71, pulse of 82, temperature 98.7? Narrative Exam Narrative: Patient on exam has a firm uterus. She continues to have some bright red bleeding with fundal massage. Objective Labs 08/26/24 01:20 Labs: Laboratory Results - last 24 hr 08/26/24 01:20 WBC 17.4 H RBC 4.32 Hgb 13.0 Hct 38.2 MCV 88.5 MCH 30.1 MCHC 34.0 RDW 13.7 Plt Count 250 Neut % (Auto) 80.7 H Lymph % (Auto) 14.1 L [place] % (Auto) 4.6 Eos % (Auto) 0.4 L Baso % (Auto) 0.2 Neut # (Auto) 32007 H Lymph # (Auto) 2500 [place] # (Auto) 800 Eos # (Auto) 100 Baso # (Auto) 0 Blood Type A Positive Antibody Screen Negative Assessment & Plan Plan Comments: hemorrhage status post TXA, Pitocin, 1000 mg of rectal Cytotec, and Methergine. Decision made to take patient back to the operating for possible D&C and placement of Alaina if needed. Time-Based Coding :: [TOTAL MINUTES] spent with patient and on the chart (including review of chart, obtaining history, exam, reviewing outside data, placing orders, documenting exam and treatment plan, and counseling patient) on [DATE].
[2024-08-26] MEDS: CEFAZOLIN 2 GM/100 ML PREMIX 100 ML IV (08:50)
--- NOTE | 2024-08-26 09:05 | SUR.OPER ---
Lithotomy on padded OR bed, head on pillow, arms secured on padded arm boards at <90 degrees abduction. Legs secured in padded yellow fins stirrups.
[2024-08-26] MEDS: CARBOPROST 250 MCG/ML AMPUL IM (09:09)
[2024-08-26] MEDS: TRANEXAMIC ACID 1,000 MG in SODIUM CHLORIDE 0.9% 100 ML 200 MG IV (09:14)
--- NOTE | 2024-08-26 09:33 | PM.OP.1 ---
Operative Date/Time/Diagnoses Date of procedure: 08/26/24 Time of procedure: 09:33 Pre-op diagnosis: hemorrhage Post-op diagnosis: same Procedure & Clinicians Procedure: Exam under anesthesia, uterine curettage, placement of MELANIE vacuum induced uterine tamponade Same procedure as scheduled: Yes Indications: hemorrhage Surgeon: Margy Jimenez Click Yes if Unassisted: Yes Anesthesia Type: General Operative Notes Findings: No significant retained products of conception. Uterine atony. Closure Type: not applicable Specimen(s): none sent Applied: other (MELANIE uterine suction device) Estimated Blood Loss (mL): 300 Blood products transfused: none Procedure in detail: Patient was brought to the operating room where she underwent general anesthesia. She was placed in low [place] stirrups and prepped and draped in the usual sterile fashion. She had 2 g of Ancef in prior to beginning the case. A check system was reviewed with the staff in the room. Retractors were used to examine the entire vagina and cervix without any evidence of lacerations requiring repair. A ring forceps was placed on the anterior lip of the cervix and gentle curettage was performed with removal of minimal tissue. The MELANIE uterine suction tamponade was placed in the uterus and the vaginal balloon was inflated with 60 cc of saline. This needed to be adjusted but once in the correct place the uterus was firm and bleeding had slowed significantly. Patient received additional doses of Pitocin, Hemabate, TXA during the procedure. Patient went to the recovery room in stable condition. Complications: none Post-operative Condition: stable Disposition: other ( Center) Plan for aftercare: Coags ordered, blood ordered.
[2024-08-26] MEDS: ONDANSETRON 4 MG/2 ML INJ IV ×2 (09:45→10:01)
[2024-08-26 09:46] LABS: Add Manual Diff / Slide Review NO; Basophils Absolute Auto 100 /uL (0-100); Basophils Percent Auto 0.3 % (0-2); Eosinophils Absolute Auto 0 /uL (0-450); Eosinophils Percent Auto 0.1 % (2-4); Hematocrit 34.4 % (36-46); Hemoglobin 11.7 g/dL (12.0-16.0); Lymphocytes Absolute Auto 1500 /uL (1100-4500); Lymphocytes Percent Auto 8.8 % (25-40); Mean Corpuscular HGB Conc 34.1 % (30-36); Mean Corpuscular Hemoglobin 30.2 PG (26-34); Mean Corpuscular Volume 88.6 fL (80-100); Monocytes Absolute Auto 1000 /uL (0-900); Neutrophils Absolute Auto 14800 /uL (1500-7000); Neutrophils Percent Auto 84.8 % (50-75); Platelet Count 206 X10^3/uL (150-400); Red Blood Cell Count 3.88 X10^6/uL (4.0-5.2); Red Cell Distribution Width 13.7 % (11.6-14.8); White Blood Cell Count 17.5 X10^3/uL (4.5-11.0)
[2024-08-26 09:51] LABS: INR 0.9 (0.9-1.3)
[2024-08-26 09:52] LABS: Fibrinogen 397 mg/dL (238-498)
[2024-08-26] MEDS: DIPHENOXYLATE/ATROP 2.5/0.025 TABLET 1 EACH PO (09:52)
[2024-08-26 09:54] LABS: PTT Partial Thromboplastin Tim 23 SECONDS (25.1-36.5)
--- NOTE | 2024-08-26 10:06 | PM.OBPN.1 ---
Subjective - OB Subjective Date Patient Seen: 08/26/24 Time Patient Seen: 10:07 Exam Vital Signs (past 8 hours): - 08/26/24 08:27 08/26/24 09:24 08/26/24 09:29 Temperature 36.6 F L 96.9 F L Pulse Rate 96 H 140 H 124 H Respiratory Rate 21 11 L Blood Pressure 124/78 134/80 131/85 Pulse Oximetry 95 98 Oxygen Delivery Method Room Air Room Air 08/26/24 09:35 08/26/24 09:39 08/26/24 09:47 Temperature Pulse Rate 113 H 111 H 110 H Respiratory Rate 11 L 11 L 11 L Blood Pressure 127/86 131/88 118/83 Pulse Oximetry 98 99 98 Oxygen Delivery Method Room Air Room Air Room Air 08/26/24 09:49 08/26/24 09:56 Temperature 97.2 F L Pulse Rate 103 H 105 H Respiratory Rate 15 13 Blood Pressure 124/76 129/81 Pulse Oximetry 98 97 Oxygen Delivery Method Room Air Room Air Oxygen Delivery Method Room Air Narrative Exam Narrative: Uterus is firm. Blood in suction tubing only from Alaina. No active bleeding vaginally. Objective Labs 08/26/24 09:40 Labs: Laboratory Results - last 24 hr 08/26/24 08/26/24 01:20 09:40 WBC 17.4 H 17.5 H RBC 4.32 3.88 L Hgb 13.0 11.7 L Hct 38.2 34.4 L MCV 88.5 88.6 MCH 30.1 30.2 MCHC 34.0 34.1 RDW 13.7 13.7 Plt Count 250 206 Neut % (Auto) 80.7 H 84.8 H Lymph % (Auto) 14.1 L 8.8 L [place] % (Auto) 4.6 6.0 Eos % (Auto) 0.4 L 0.1 L Baso % (Auto) 0.2 0.3 Neut # (Auto) 44081 H 50586 H Lymph # (Auto) 2500 1500 [place] # (Auto) 800 1000 H Eos # (Auto) 100 0 Baso # (Auto) 0 100 PT 10.0 INR 0.9 APTT 23 L Fibrinogen 397 Blood Type A Positive Antibody Screen Negative Crossmatch See Detail Assessment & Plan Plan Comments: Labs are stable. Alaina is present and appears to be working. Monitor for further bleeding. Time-Based Coding :: [TOTAL MINUTES] spent with patient and on the chart (including review of chart, obtaining history, exam, reviewing outside data, placing orders, documenting exam and treatment plan, and counseling patient) on [DATE].
[2024-08-26] MEDS: WITCH HAZEL/GLYCERIN PADS 1 EACH TOP (10:28)
[2024-08-26] MEDS: IBUPROFEN 600 MG TABLET PO ×2 (12:29→18:11)
--- NOTE | 2024-08-26 14:33 | PM.OBPN.1 ---
Subjective - OB Subjective Patient comments: no complaints [place] baby status: doing well Date Patient Seen: 08/26/24 Time Patient Seen: 14:34 Interval history: Patient is doing well drinking fluids. She denies any pain. Exam Vital Signs (past 8 hours): - 08/26/24 08:27 08/26/24 09:24 08/26/24 09:29 Temperature 36.6 F L 96.9 F L Pulse Rate 96 H 140 H 124 H Respiratory Rate 21 11 L Blood Pressure 124/78 134/80 131/85 Pulse Oximetry 95 98 Oxygen Delivery Method Room Air Room Air 08/26/24 09:35 08/26/24 09:39 08/26/24 09:47 Temperature Pulse Rate 113 H 111 H 110 H Respiratory Rate 11 L 11 L 11 L Blood Pressure 127/86 131/88 118/83 Pulse Oximetry 98 99 98 Oxygen Delivery Method Room Air Room Air Room Air 08/26/24 09:49 08/26/24 09:56 08/26/24 11:19 Temperature 97.2 F L 97.2 F L Pulse Rate 103 H 105 H 105 H Respiratory Rate 15 13 13 Blood Pressure 124/76 129/81 129/81 Pulse Oximetry 98 97 Oxygen Delivery Method Room Air Room Air Oxygen Delivery Method Room Air Narrative Exam Narrative: Blood pressure 119/74, pulse 93, temperature 97.6? Some abdominal distention. Uterus is firm, U-2, nontender. Minimal blood in to being coming from [facility]. No significant vaginal bleeding. Excellent urinary output in [place] Objective Labs 08/26/24 09:40 Labs: Laboratory Results - last 24 hr 08/26/24 08/26/24 01:20 09:40 WBC 17.4 H 17.5 H RBC 4.32 3.88 L Hgb 13.0 11.7 L Hct 38.2 34.4 L MCV 88.5 88.6 MCH 30.1 30.2 MCHC 34.0 34.1 RDW 13.7 13.7 Plt Count 250 206 Neut % (Auto) 80.7 H 84.8 H Lymph % (Auto) 14.1 L 8.8 L [place] % (Auto) 4.6 6.0 Eos % (Auto) 0.4 L 0.1 L Baso % (Auto) 0.2 0.3 Neut # (Auto) 82352 H 11968 H Lymph # (Auto) 2500 1500 [place] # (Auto) 800 1000 H Eos # (Auto) 100 0 Baso # (Auto) 0 100 PT 10.0 INR 0.9 APTT 23 L Fibrinogen 397 Blood Type A Positive Antibody Screen Negative Crossmatch See Detail Assessment & Plan Plan Comments: Patient stable post D&C with placement of Alaina for hemorrhage. Will recheck H&H. DC Alaina and [place] later this evening if stable. Time-Based Coding :: [TOTAL MINUTES] spent with patient and on the chart (including review of chart, obtaining history, exam, reviewing outside data, placing orders, documenting exam and treatment plan, and counseling patient) on [DATE].
[2024-08-26 19:08] LABS: Hematocrit 32.7 % (36-46); Hemoglobin 10.8 g/dL (12.0-16.0)
--- NOTE | 2024-08-26 20:19 | P.PNOB_ITS ---
Subjective - OB Subjective Patient comments: pain well controlled [place] baby status: doing well feeding status: exclusively breast feeding Date Patient Seen: 08/26/24 Time Patient Seen: 17:30 Interval history: 30 minutes prior the section was stopped on the Alaina and the fluid removed from the vaginal balloon. There was no significant bleeding. Exam Vital Signs (past 8 hours): Blood pressure 114/73, pulse of 99, temperature 98.2? Oxygen Delivery Method Room Air Narrative Exam Narrative: Abdomen is soft, nontender. Uterus is firm, U -2. The Alaina was removed without difficulty with very minimal bleeding. Extremities without edema and nontender. Objective Labs 08/26/24 18:35 Labs: Laboratory Results - last 24 hr 08/26/24 08/26/24 08/26/24 01:20 09:40 18:35 WBC 17.4 H 17.5 H RBC 4.32 3.88 L Hgb 13.0 11.7 L 10.8 L Hct 38.2 34.4 L 32.7 L MCV 88.5 88.6 MCH 30.1 30.2 MCHC 34.0 34.1 RDW 13.7 13.7 Plt Count 250 206 Neut % (Auto) 80.7 H 84.8 H Lymph % (Auto) 14.1 L 8.8 L [place] % (Auto) 4.6 6.0 Eos % (Auto) 0.4 L 0.1 L Baso % (Auto) 0.2 0.3 Neut # (Auto) 57033 H 91275 H Lymph # (Auto) 2500 1500 [place] # (Auto) 800 1000 H Eos # (Auto) 100 0 Baso # (Auto) 0 100 PT 10.0 INR 0.9 APTT 23 L Fibrinogen 397 Blood Type A Positive Antibody Screen Negative Crossmatch See Detail Assessment & Plan Plan plan OB: routine care Comments: Continued to monitor for bleeding. Patient was able to urinate after removing her [place] catheter. Time-Based Coding :: [TOTAL MINUTES] spent with patient and on the chart (including review of chart, obtaining history, exam, reviewing outside data, placing orders, documenting exam and treatment plan, and counseling patient) on [DATE].
[2024-08-26] MEDS: OXYCODONE IR 5 MG TABLET PO (21:11)
[2024-08-27] MEDS: IBUPROFEN 600 MG TABLET PO ×2 (05:37→12:31)
[2024-08-27] MEDS: ACETAMINOPHEN 325 MG TABLET 650 MG PO ×2 (05:37→12:30)
[2024-08-27 05:52] LABS: Add Manual Diff / Slide Review NO; Basophils Absolute Auto 0 /uL (0-100); Basophils Percent Auto 0.2 % (0-2); Eosinophils Absolute Auto 100 /uL (0-450); Eosinophils Percent Auto 0.5 % (2-4); Hematocrit 26.4 % (36-46); Hemoglobin 8.9 g/dL (12.0-16.0); Lymphocytes Absolute Auto 3400 /uL (1100-4500); Lymphocytes Percent Auto 17.2 % (25-40); Mean Corpuscular HGB Conc 33.6 % (30-36); Mean Corpuscular Volume 89.3 fL (80-100); Monocytes Absolute Auto 1100 /uL (0-900); Monocytes Percent Auto 5.6 % (3-14); Neutrophils Absolute Auto 15100 /uL (1500-7000); Neutrophils Percent Auto 76.5 % (50-75); Platelet Count 218 X10^3/uL (150-400); Red Blood Cell Count 2.95 X10^6/uL (4.0-5.2); White Blood Cell Count 19.7 X10^3/uL (4.5-11.0)
--- NOTE | 2024-08-27 09:17 | P.DS_ITS ---
Discharge Providers Provider Date of admission: 08/25/24 22:34 Discharge Date: 08/27/24 Primary care physician: Liss Oscar MD Consults: 08/26/24 01:50 Consult to Anesthesiology Urgent Comment: Consulting Provider: Anesthesiologist Reason for consultation: Epidural 08/27/24 03:36 Consult to Temporary Administrative Assistant Routine Comment: Discharge provider: Liss Oscar MD Summary Hospital Course Date Patient Seen: 08/27/24 Time Patient Seen: 09:18 Diagnoses: 38w2d gestation GBS negative Rh positive hemorrhage requiring curettage and placement of MELANIE Acute blood loss anemia Hospital Course: The pt presented in active labor. She had SROM with clear fluid present. She rapidly progressed to complete. She had an epidural placed immediately prior to delivery. She precipitously delivered a viable baby boy without any initial complications. There were no lacerations requiring repair. She had a delayed hemorrhage with unsuccessful control with TXA, pitocin, rectal cytotec, and Methergine. She was then taken to the OR for curettage, and ultimately placement of the MELANIE vacuum. The pt received additional pitocin, TXA, and Hemabate in the OR. The MELANIE was removed later that evening, and the pts bleeding has been appropriate since. , there were no additional complications. At the time of discharge she was voiding, ambulating, and passing flatus without difficulty. Her pain was well controlled. She is with good latch. She will continue an iron supplement at home for her anemia. She will f/u in 6 weeks for check. She would like OCPs for contraception as bridge to her 's vasectomy which is scheduled for 10/27/24. Peripartum Data Infant Delivery Method: Natural Vaginal Laceration Description: None Episiotomy description: None Procedures: Spontaneous vaginal delivery curettage and placement of MELANIE [place] 1: Gender: Male Disposition of : home Discharge Diagnosis (1) Spontaneous vaginal delivery: Status: Acute (2) hemorrhage: Status: Acute Status at Discharge Cognitive/behavioral status at discharge: oriented Functional status at discharge: independent ambulation Overall status at discharge: patient is progressing back to baseline Time Spent with Patient Time attestation: Total time spent providing and/or coordinating discharge services: Objective Labs 08/27/24 05:42 Labs: Laboratory Results - last 24 hr 08/26/24 08/27/24 18:35 05:42 WBC 19.7 H RBC 2.95 L Hgb 10.8 L 8.9 L Hct 32.7 L 26.4 L MCV 89.3 MCH 30.0 MCHC 33.6 RDW 14.0 Plt Count 218 Neut % (Auto) 76.5 H Lymph % (Auto) 17.2 L [place] % (Auto) 5.6 Eos % (Auto) 0.5 L Baso % (Auto) 0.2 Neut # (Auto) 33232 H Lymph # (Auto) 3400 [place] # (Auto) 1100 H Eos # (Auto) 100 Baso # (Auto) 0 Exam Vital Signs (past 8 hours): Oxygen Delivery Method Room Air Narrative Exam Narrative: Gen: NAD, sitting comfortably in bed, appears well CV: RRR, no murmurs Resp: clear to auscultation bilaterally Abd: soft, appropriately tender, fundus firm and below the umbilicus, nondistended Ext: no edema Discharge Plan Discharge Plan Patient Disposition: Home Discharge orders & Medications Prescriptions: New acetaminophen 325 mg Tablet 650 mg PO Q6HR PRN (Reason: Pain, Mild (1-3)) Qty: 30 0RF sertraline [Zoloft] 50 mg Tablet 100 mg PO DAILY Qty: 90 3RF ibuprofen 600 mg Tablet 600 mg PO Q6H PRN (Reason: Pain, Mild (1-3)) Qty: 60 0RF Continued acyclovir 400 mg tablet 400 mg PO BID PRN (Reason: HSV outbreak) Qty: 60 0RF prenat.vits,mary lou,[id number] Tablet 1 tab PO DAILY Discontinued sertraline 100 mg tablet 100 mg PO DAILY Qty: 30 3RF Follow up/Referrals: Liss Oscar MD [Primary Care Provider] - 6 Weeks Diet/Activity/Treatments Diet: Diet as Tolerated and Regular Skin/Wound/Dressing Care Report to your healthcare provider any signs of infection, such as:: chills, fever, increased pain and unusual drainage Visit Report/Discharge Packet Instructions: DI for Labor and Delivery, Vaginal Stand Alone Forms: Patient Portal/API, Stroke Signs & Symptoms Discharge Data Primary Care Provider: Liss Oscar Attending Provider: Margy Jimenez Admit Date/Time: 08/25/24 22:34
[2024-08-27] MEDS: polyethylene glycoL 3350 17 GM POWD.PACK PO (10:55)
== END 2024-08-27 14:36 | disposition home or self-care (01) | DRG 768 ==
PROVIDERS: Admitting Provider Specialist; PCP Family Medicine; Referring Provider Specialist; Visit Provider Specialist
PROC: 0W3R7ZZ Control Bleeding in Genitourinary Tract, Via Natural or Artificial Opening (ICD-10-PCS; CPT 58120; principal; 2024-08-26 09:15)
DX: O62.3 Precipitate labor (principal); Z37.0 Single live birth; D62 Acute posthemorrhagic anemia; O90.81 Anemia of the puerperium; Z3A.38 38 weeks gestation of pregnancy
CPT/HCPCS: 36415; 59050; 59160; 59899; 85014; 85018; 85025; 85384; 85610; 85730; 86850; 86900; 86901; G0378; G0379; J0330; J0690; J1100; J1885; J2210; J2405; J2590; J2704; J3010; S0191

== ENCOUNTER → 2025-03-28 12:13 | Outpatient (CLI) | payer OTHER, SELFPAY ==
--- NOTE | 2025-03-28 12:17 | DI.RAD.S_ITS ---
PROCEDURE: XR ANKLE LT MIN 3V INDICATIONS: Left ankle pain TECHNIQUE: 3 views of the ankle were acquired. COMPARISON: None. FINDINGS: Bones: No fractures or dislocations. Ankle mortise is normally aligned. No suspicious bony lesions. Soft tissues: No tibiotalar joint effusion. Achilles tendon appears normal. IMPRESSION: No acute bony abnormality or significant effusion. Dictated by: Shahram Constantino M.D. on 03/28/2025 at 20:06 Approved by: Shahram Constantino M.D. on 03/28/2025 at 20:06
== END ==
PROVIDERS: PCP Family Medicine; Referring Provider Family Medicine; Visit Provider Family Medicine
DX: M25.572 Pain in left ankle and joints of left foot (principal)
CPT/HCPCS: 73610